=== PATIENT | female | born 1945 | race Caucasian/White ===

== ENCOUNTER → 2025-02-11 09:28 | Outpatient (REF) | payer OTHER, MEDICARE, SELFPAY ==
[2025-02-11 11:10] LABS: Hematocrit 31.6 % (37.0-47.0); Hemoglobin 10.4 g/dL (12.0-16.0); Mean Corp Hgb Conc. 32.9 g/dL (33.0-37.0); Mean Corpuscular Volume 96.6 fL (81.0-99.0); Nucleated Red Blood Cells % 0 %; Platelet Count 354 10^3/uL (130-400); Red Cell Dist. Width 13.4 % (11.5-14.5)
[2025-02-11 11:22] LABS: ALT (SGPT) 25 U/L (0-35); AST (SGOT) 34 U/L (14-36); Albumin 3.5 g/dl (3.5-5.0); Alkaline Phosphatase 89 U/L (38-126); Blood Urea Nitrogen 23 mg/dl (7-17); Calcium 8.9 mg/dl (8.4-10.2); Carbon Dioxide 31 mmol/L (22-30); Chloride 103 mmol/L (98-107); Glucose 115 mg/dl (70-99); HDL Cholesterol 51 mg/dl; LDL Cholesterol, Calculated 100 mg/dl; Potassium 4.1 mmol/L (3.5-5.1); Sodium 139 mmol/L (135-145); Total Protein 6.1 g/dl (6.3-8.2); Very Low Density Lipoprotein 20 mg/dl (0-30); eGFR > 60.00
[2025-02-11 12:30] LABS: Glycohemoglobin (HgbA1c) 6.2 % (4.0-5.9)
== END ==
LOC: OLABN 09:28
PROVIDERS: ATTENDING PHYSICIAN Internal Medicine Geriatric Medicine
DX: I10 Essential (primary) hypertension (principal); J44.9 Chronic obstructive pulmonary disease, unspecified; Z13.1 Encounter for screening for diabetes mellitus; E78.2 Mixed hyperlipidemia; R73.03 Prediabetes
CPT/HCPCS: 36415; 80053; 80061; 83036; 85025